=== PATIENT | female | born 1990 | race African-American/Black ===

== ENCOUNTER 2016-07-09 03:18 | Emergency (ER) | payer SELFPAY ==
[~2016-07-09] VITALS: Ht 165.1 cm; Wt 65.2 kg
[2016-07-09 03:25] VITALS: BP 108/68; PULSE 62; RESP 16; TEMP 97.6; O2SAT 100
== END 2016-07-09 03:36 | disposition left against medical advice (07) ==
LOC: PHED 03:18
DX: R51 Headache (principal)
CPT/HCPCS: 99281

== ENCOUNTER 2016-07-09 03:55 | Emergency (ER) | payer SELFPAY ==
[~2016-07-09] VITALS: Ht 165.1 cm; Wt 64.5 kg
[2016-07-09 03:58] VITALS: BP 121/62; PULSE 72; RESP 18; TEMP 97.5; O2SAT 100
== END 2016-07-09 04:19 | disposition left against medical advice (07) ==
LOC: NED 03:55
DX: R51 Headache (principal)
CPT/HCPCS: 99281

== ENCOUNTER 2016-09-16 02:56 | Emergency (ER) | payer SELFPAY ==
[~2016-09-16] VITALS: Ht 170.2 cm; Wt 68.0 kg
[2016-09-16 03:00] VITALS: BP 124/60; PULSE 77; RESP 16; TEMP 98.2; O2SAT 99
== END 2016-09-16 04:12 | disposition left against medical advice (07) ==
LOC: NED 02:56
DX: R68.89 Other general symptoms and signs (principal)
CPT/HCPCS: 99281

== ENCOUNTER 2016-09-28 04:10 | Emergency (ER) | payer SELFPAY ==
[~2016-09-28] VITALS: Ht 165.1 cm; Wt 62.9 kg
[2016-09-28 04:17] VITALS: BP 134/74; PULSE 72; RESP 14; TEMP 98; O2SAT 99
[2016-09-28 04:22] VITALS: BP 134/74; PULSE 72; RESP 20; TEMP 98; O2SAT 99
[2016-09-28] MEDS ORDERED: KETOROLAC TROMETHAMINE 60 MG/2 ML (IM) VIAL IM ONE (05:15)
[2016-09-28] MEDS ORDERED: ONDANSETRON HCL 4 MG/2 ML VIAL IM ONE (05:15)
[2016-09-28] MEDS ORDERED: HYDROmorphone HCL PF 1 MG/ML VIAL IM ONE (05:15)
[2016-09-28] MEDS ORDERED: LIDOCAINE HCL 1% 50 ML VIAL IM ONE (05:15)
[2016-09-28] MEDS ORDERED: AMOX500T PO (05:18)
[2016-09-28] MEDS ORDERED: HYDR-3533 PO (05:18)
--- NOTE | 2016-09-28 05:25 | PD ---
HPI Chief Complaint: Oral / Dental Pain or Problem Time Seen by Provider: 05:03 Travel History International Travel<30 days: No Contact w/Intl Traveler<30days: No Traveled to known affect area: No History of Present Illness HPI The patient is a 26-year-old female that has had a toothache on off for over a year. It got worse tonight. The patient has never called a dentist. PFSH Past Medical History Diminished Hearing: No Tetanus Vaccination: Unknown ?: Not LMP: 08-16-16 Social History Alcohol Use: No Tobacco Use: Yes (1/2 PPD) Substance Use: Yes (MARIJUANA) Allergies-Medications (Allergen,Severity, Reaction): Coded Allergies: No Known Allergies (Unverified , 09/28/16) Reported Meds & Prescriptions Reported Meds & Active Scripts Active Lortab (Hydrocodone-Acetaminophen) 5-325 Mg Tab 1 Tab PO Q4H PRN Amoxicillin 500 Mg Tab 500 Mg PO TID 10 Days Review of Systems Except as stated in HPI: all other systems reviewed are Neg Physical Exam Narrative GENERAL: Well-nourished, well-developed patient in moderate to severe distress, continually crying in pain. Her vital signs are normal. SKIN: Focused skin assessment warm/dry. HEAD: Normocephalic. EYES: No scleral icterus. No injection or drainage. NECK: Supple, trachea midline. No JVD or lymphadenopathy. CARDIOVASCULAR: Regular rate and rhythm without murmurs, gallops, or rubs. RESPIRATORY: Breath sounds equal bilaterally. No accessory muscle use. GASTROINTESTINAL: Abdomen soft, non-tender, nondistended. MUSCULOSKELETAL: No cyanosis, or edema. BACK: Nontender without obvious deformity. No CVA tenderness. DENTAL: No loose or chipped teeth. No malocclusion. There is tenderness around tooth #32 with minimal swelling almond no drainable abscesses are seen. Data Data Last Documented VS Vital Signs Date Time Temp Pulse Resp B/P Pulse Ox O2 Delivery O2 Flow Rate FiO2 09/28/16 04:22 98.0 72 20 134/74 99 MDM Medical Decision Making Medical Screen Exam Complete: Yes Emergency Medical Condition: Yes Medical Record Reviewed: Yes Differential Diagnosis Drainable dental abscess, non-drainable dental abscess, dental infection, malingering to obtain pain medications Narrative Course The patient does not have any drainable dental abscesses but it appears she has a dental infection. Plan: The patient be given amoxicillin 500 mg 3 times daily as well as Lortab 5/ 325 #12. Diagnosis Primary Impression: Dental infection Additional Instructions: It is necessary to follow-up with a dentist. We cannot treat you adequately here with just antibiotics and pain medications. Med/Other Pt SpecificInfo: Prescription(s) given Scripts Hydrocodone-Acetaminophen (Lortab)5-325 Mg Tab1 Tab PO Q4H PRN (PAIN) #12 TAB Ref 0 Prov:Raji Matias MD 09/28/16 Amoxicillin 500 Mg [id number] Mg PO TID 10 Days Ref 0 Prov:Raji Matias MD 09/28/16 Disposition: 01 DISCHARGE HOME Condition: Stable Raji Matias MD Sep 28, 2016 05:24
[2016-09-28] MEDS ORDERED: KETOROLAC TROMETHAMINE 60 MG/2 ML (IM) VIAL IVP ONE (05:30)
[2016-09-28] MEDS ORDERED: HYDROmorphone HCL PF 1 MG/ML VIAL IVP ONE (05:30)
[2016-09-28] MEDS ORDERED: ONDANSETRON HCL 4 MG/2 ML VIAL IV ONE (05:30)
[2016-09-28] MEDS ORDERED: cefTRIAXone INJ 1,000 MG in SODIUM CHLORIDE 0.9% INJ 100 ML IV ONE (05:30)
[2016-09-28 06:08] VITALS: RESP 15
[2016-09-28 06:11] VITALS: BP 120/70; TEMP 98
== END 2016-09-28 06:25 | disposition home or self-care (01) ==
LOC: PHED 04:10
DX: K04.7 Periapical abscess without sinus (principal); F17.200 Nicotine dependence, unspecified, uncomplicated
CPT/HCPCS: 96365; 96375; 99282; J0696; J1170; J1885; J2405

== ENCOUNTER 2017-08-24 04:05 | Emergency (ER) | payer SELFPAY ==
[~2017-08-24] VITALS: Ht 165.1 cm; Wt 66.5 kg
[~2017-08-24 04:05] MED LIST: AMOX500T PO; HYDR-3533 PO
[2017-08-24 04:09] VITALS: BP 108/65; PULSE 67; RESP 18; TEMP 99.4; O2SAT 100
== END 2017-08-24 04:18 | disposition left against medical advice (07) ==
LOC: PHED 04:05
DX: R11.10 Vomiting, unspecified (principal); Z53.21 Procedure and treatment not carried out due to patient leaving prior to being seen by health care provider
CPT/HCPCS: 99281

== ENCOUNTER 2017-10-03 07:11 | Emergency (ER) | payer SELFPAY ==
[~2017-10-03] VITALS: Ht 165.1 cm; Wt 63.0 kg
[2017-10-03 07:21] VITALS: BP 125/73; PULSE 65; RESP 17; TEMP 98.6; O2SAT 100
[2017-10-03] MEDS ORDERED: SODIUM CHLORIDE 0.9% FLUSH 10 ML FLUSH IV FLUSH PRN (07:45)
[2017-10-03] MEDS ORDERED: ONDANSETRON HCL 4 MG/2 ML VIAL IVP ONE (07:45)
[2017-10-03] MEDS ORDERED: SODIUM CHLOR 0.9% 1000 ML INJ 1,000 ML IV SCH (07:45)
[2017-10-03 07:47] VITALS: O2SAT 100
--- NOTE | 2017-10-03 07:51 | PD ---
HPI Chief Complaint: GI Complaint Time Seen by Provider: 07:45 Travel History International Travel<30 days: No Contact w/Intl Traveler<30days: No Traveled to known affect area: No History of Present Illness HPI 27-year-old female patient presents to the ER today, started having nausea and vomiting this morning, pelvic cramping pains, states that this happens every month with her menses. She states that she just started her menses today. She denies any fevers, states she had an episode of diarrhea as well which also comes around the same time. She denies any other issues. She states that she does not have a primary care doctor and does not usually take anything for this. She does not know of any sick contacts. Modifying Factors: None Associated Signs & Symptoms: Nausea and vomiting, diarrhea Risk Factors: Previous symptoms especially with menses PFSH Past Medical History Medical History: Denies Significant Hx Diminished Hearing: No Tetanus Vaccination: Unknown Influenza Vaccination: No ?: Not LMP: 10/03/17 Past Surgical History Surgical History: No Previous Surgery Social History Alcohol Use: No Tobacco Use: Yes (1/2 PPD) Substance Use: Yes (MARIJUANA) Allergies-Medications (Allergen,Severity, Reaction): Coded Allergies: No Known Allergies (Unverified Adverse Reaction, Unknown, 10/03/17) Reported Meds & Prescriptions Reported Meds & Active Scripts Active No Active Prescriptions or Reported Medications Review of Systems Except as stated in HPI: all other systems reviewed are Neg Physical Exam Narrative GENERAL: Well-developed young female patient currently in mild distress. Awake and oriented 3. SKIN: Focused skin assessment warm/dry. HEAD: Atraumatic. Normocephalic. EYES: Pupils equal and round. No scleral icterus. No injection or drainage. ENT: No nasal bleeding or discharge. Mucous membranes pink and moist. NECK: Trachea midline. No JVD. Supple. CARDIOVASCULAR: Regular rate and rhythm. No murmur appreciated. RESPIRATORY: No accessory muscle use. Clear to auscultation. Breath sounds equal bilaterally. GASTROINTESTINAL: Abdomen soft, non-tender, nondistended. Hepatic and splenic margins not palpable. MUSCULOSKELETAL: No obvious deformities. No clubbing. No cyanosis. No edema. NEUROLOGICAL: Awake and alert. No obvious cranial nerve deficits. Motor grossly within normal limits. Normal speech. PSYCHIATRIC: Appropriate mood and affect; insight and judgment normal. Data Data Last Documented VS Vital Signs Date Time Temp Pulse Resp B/P (MAP) Pulse Ox O2 Delivery O2 Flow Rate FiO2 10/03/17 07:47 100 10/03/17 07:30 19 10/03/17 07:21 98.6 65 125/73 (90) Orders Orders Complete Blood Count With Diff (10/03/17 07:45) Comprehensive Metabolic Panel (10/03/17 07:45) Lipase (10/03/17 07:45) Urinalysis - C+S If Indicated (10/03/17 07:45) Iv Access Insert/Monitor (10/03/17 07:45) Ecg Monitoring (10/03/17 07:45) Oximetry (10/03/17 07:45) Ondansetron Inj (Zofran Inj) (10/03/17 07:45) Sodium Chlor 0.9% 1000 Ml Inj (Ns 1000 M (10/03/17 07:45) Sodium Chloride 0.9% Flush (Ns Flush) (10/03/17 07:45) Ed Urine Pregnancytest Poc (10/03/17 07:45) Promethazine Inj (Phenergan Inj) (10/03/17 08:30) Urine Culture (10/03/17 07:45) Labs Laboratory Tests Test 10/03/17 07:45 White Blood Count 9.2 TH/MM3 Red Blood Count 4.85 MIL/MM3 Hemoglobin 13.9 GM/DL Hematocrit 40.9 % Mean Corpuscular Volume 84.4 FL Mean Corpuscular Hemoglobin 28.6 PG Mean Corpuscular Hemoglobin Concent 33.9 % Red Cell Distribution Width 13.8 % Platelet Count 232 TH/MM3 Mean Platelet Volume 8.4 FL Neutrophils (%) (Auto) 66.8 % Lymphocytes (%) (Auto) 23.8 % Monocytes (%) (Auto) 8.2 % Eosinophils (%) (Auto) 0.6 % Basophils (%) (Auto) 0.6 % Neutrophils # (Auto) 6.1 TH/MM3 Lymphocytes # (Auto) 2.2 TH/MM3 Monocytes # (Auto) 0.7 TH/MM3 Eosinophils # (Auto) 0.1 TH/MM3 Basophils # (Auto) 0.1 TH/MM3 CBC Comment DIFF FINAL Differential Comment Urine Color YELLOW Urine Turbidity HAZY Urine pH 6.5 Urine Specific [place] 1.031 Urine Protein 30 mg/dL Urine Glucose (UA) NEG mg/dL Urine Ketones NEG mg/dL Urine Occult Blood MOD Urine Nitrite NEG Urine Bilirubin NEG Urine Urobilinogen 2.0 MG/DL Urine Leukocyte Esterase MOD Urine RBC /hpf Urine WBC 3 /hpf Urine Squamous Epithelial Cells 5 /hpf Urine Bacteria MANY /hpf Urine Mucus MANY /lpf Microscopic Urinalysis Comment CULTURE INDICATED Blood Urea Nitrogen 5 MG/DL Creatinine 0.80 MG/DL Random Glucose 100 MG/DL Total Protein 8.3 GM/DL Albumin 4.3 GM/DL Calcium Level 9.4 MG/DL Alkaline Phosphatase 55 U/L Aspartate Amino Transf (AST/SGOT) 16 U/L Alanine Aminotransferase (ALT/SGPT) 15 U/L Total Bilirubin 0.5 MG/DL Sodium Level 141 MEQ/L Potassium Level 3.7 MEQ/L Chloride Level 107 MEQ/L Carbon Dioxide Level 24.0 MEQ/L Anion Gap 10 MEQ/L Estimat Glomerular Filtration Rate 106 ML/MIN Lipase 77 U/L MDM Medical Decision Making Medical Screen Exam Complete: Yes Emergency Medical Condition: Yes Medical Record Reviewed: Yes Interpretation(s) Laboratory Tests Test 10/03/17 07:45 Monocytes (%) (Auto) 8.2 % (0.0-8.0) Urine Turbidity HAZY (CLEAR) Urine Protein 30 mg/dL (NEG-TRACE) Urine Occult Blood MOD (NEG) Urine Leukocyte Esterase MOD (NEG) Urine Bacteria MANY /hpf (NONE) Urine Mucus MANY /lpf (OCC) Blood Urea Nitrogen 5 MG/DL (7-18) Total Protein 8.3 GM/DL (6.4-8.2) Differential Diagnosis Nausea and vomiting: Gastroenteritis versus cyclic vomiting versus dehydration versus metabolic issues Narrative Course She is not . Patient denies any new sexual partners. She does have a UTI on lab work. Abdomen is fairly benign otherwise and not suspecting an acute intra-abdominal process. Patient has had similar symptoms with every menses. She was given Zofran, IV fluids, and then Phenergan. On reevaluation at 9 AM, she is feeling improved. At this point, my plan would be to release her with treatment for nausea and vomiting and for UTI. The plan was discussed with her and she states understanding. Diagnosis Primary Impression: UTI (urinary tract infection) Med/Other Pt SpecificInfo: Prescription(s) given Scripts Sulfamethoxazole-Trimethoprim (Bactrim DS) 800-160 Mg Tab 1 TAB PO BID for Infection, #14 TAB 0 Refills Prov: Reynaldo Griffith MD 10/03/17 Promethazine (Phenergan) 25 Mg Tablet 25 MG PO Q6H Y for NAUSEA OR VOMITING, #7 TAB 0 Refills Prov: Reynaldo Griffith MD 10/03/17 Disposition: 01 DISCHARGE HOME Condition: Stable Reynaldo Griffith MD October 03, 2017 07:51
[2017-10-03 08:09] LABS: AUTOMATED NEUTROPHIL # 6.1 TH/MM3 (1.8-7.7); BASOPHIL # 0.1 TH/MM3 (0-0.2); BASOPHIL % 0.6 % (0.0-2.0); EOSINOPHIL # 0.1 TH/MM3 (0-0.4); EOSINOPHIL % 0.6 % (0.0-4.0); HEMATOCRIT 40.9 % (35.0-46.0); HEMOGLOBIN 13.9 GM/DL (11.6-15.3); LYMPH % 23.8 % (9.0-44.0); LYMPHOCYTE # 2.2 TH/MM3 (1.0-4.8); MEAN CELL VOLUME 84.4 FL (80.0-100.0); MEAN CORPUSCULAR HEMOGLOBIN 28.6 PG (27.0-34.0); MEAN CORPUSCULAR HGB CONC 33.9 % (32.0-36.0); MEAN PLATELET VOLUME 8.4 FL (7.0-11.0); MONO % 8.2 % (0.0-8.0); MONOCYTE # 0.7 TH/MM3 (0-0.9); NEUT % 66.8 % (16.0-70.0); PLATELET COUNT 232 TH/MM3 (150-450); RED BLOOD COUNT 4.85 MIL/MM3 (4.00-5.30); RED CELL DISTRIBUTION WIDTH 13.8 % (11.6-17.2); WHITE BLOOD COUNT 9.2 TH/MM3 (4.0-11.0)
[2017-10-03 08:16] LABS: BACTERIA, URINE MANY /hpf; BILIRUBIN, URINE NEG (NEG); BLOOD, URINE MOD (NEG); GLUCOSE,URINE NEG (NEG); KETONE, URINE NEG (NEG); MUCUS URINE MANY /lpf (OCC); NITRITE,URINE NEG (NEG); PH, URINE 6.5 (5.0-8.5); SQUAMOUS EPITHELIAL CELL URINE 5 /hpf (0-5); URINE COLOR YELLOW (YELLW/STRAW); URINE LEUKOCYTE ESTERASE MOD (NEG)
[2017-10-03 08:24] LABS: ALBUMIN 4.3 GM/DL (3.4-5.0); AST (GOT) 16 U/L (15-37); BLOOD UREA NITROGEN 5 MG/DL (7-18); CALCIUM 9.4 MG/DL (8.5-10.1); CHLORIDE 107 MEQ/L (98-107); GLOMERULAR FILTRATION RATE 106 ML/MIN (>89); GLUCOSE,RANDOM 100 MG/DL (74-106); SODIUM (NA) 141 MEQ/L (136-145)
[2017-10-03 08:27] LABS: ALKALINE PHOSPHATASE 55 U/L (45-117); ALT (GPT) 15 U/L (10-53); TOTAL BILIRUBIN ADULT 0.5 MG/DL (0.2-1.0); TOTAL PROTEIN 8.3 GM/DL (6.4-8.2)
[2017-10-03] MEDS ORDERED: PROMETHAZINE INJ 25 MG/ML VIAL IM ONE (08:30)
[2017-10-03] MEDS ORDERED: BACT800T5 PO (09:14)
[2017-10-03] MEDS ORDERED: PROM25TA10 PO (09:14)
[2017-10-03 09:15] VITALS: BP 123/76
== END 2017-10-03 09:22 | disposition home or self-care (01) ==
LOC: NEPC 07:11
DX: N39.0 Urinary tract infection, site not specified (principal); F12.90 Cannabis use, unspecified, uncomplicated; F17.200 Nicotine dependence, unspecified, uncomplicated
CPT/HCPCS: 80053; 81001; 83690; 84703; 85025; 87086; 96361; 96372; 96374; 99284; J2405; J2550; J7030